=== PATIENT | female | born 1955 | race Caucasian/White ===

== ENCOUNTER 2016-04-28 11:54 | Day surgery (SDC) | payer OTHER ==
[2016-04-19 12:08] VITALS: BMI 28.0
--- NOTE | 2016-04-19 12:34 | PAT Medication Instructions ---
Service Date Apr 19, 2016. Current Home Medication List Albuterol Inhaler (Ventolin Inhaler), 2 PUFFS INH QID PRN for Wheezing Spfofil-Auedbvkmqdgzl-Eemxrfpn (Excedrin Migraine), 2 TAB PO TID PRN for Migraine Cyclobenzaprine Hcl (Flexeril), 5 MG PO BID PRN for Migraine Diazepam (Valium), 2 MG PO BID PRN Fexofenadine/Pseudoephedrine (Zenaida-D 12HR 60/120MG), 1 TAB PO QAM Fluoxetine (Prozac), 40 MG PO QAM Latanoprost 0.005% Oph (Xalatan 0.005% Oph), 1 DROP OPB HS Levothyroxine Sodium (Levoxyl), 1 TAB PO QAM Lorazepam (Ativan *), 1 MG PO HS PRN for Anxiety Magnesium Oxide (Mag-Ox), 400 MG PO HS Meloxicam (Mobic), 15 MG PO QAM Misoprostol (Cytotec), 100 MCG PO TID PRN for STOMACH ULCER Multiple Vitamin (Multi Vitamin Daily), 1 TAB PO QAM Pantoprazole (Protonix), 40 MG PO QAM Pseudoephedrine (Sudafed), 30 MG PO QAM Triamcinolone Acetonide (Nasal (Nasacort Aq Nasal Inh), 2 SPRAYS ZURDO BID PRN for ALLERGIES Valacyclovir Hcl (Valtrex), 500 MG PO BID PRN for cold sores Medication Instructions For Your Scheduled Surgery - Per pt, stopped 04/18/16: Meloxicam (Mobic), 15 MG PO QAM Iygstcn-Tmxcmjdmzlnrh-Rjhjlmol (Excedrin Migraine), 2 TAB PO TID PRN for Migraine Multiple Vitamin (Multi Vitamin Daily), 1 TAB PO QAM - Hold the following medications the morning of surgery: Cyclobenzaprine Hcl (Flexeril), 5 MG PO BID PRN for Migraine Misoprostol (Cytotec), 100 MCG PO TID PRN for STOMACH ULCER Fexofenadine/Pseudoephedrine (Zenaida-D 12HR 60/120MG), 1 TAB PO QAM Pseudoephedrine (Sudafed), 30 MG PO QAM - Take the following medications the morning of surgery with a sip of water OTHERWISE NOTHING TO EAT OR DRINK AFTER MIDNIGHT: Albuterol Inhaler (Ventolin Inhaler), 2 PUFFS INH QID PRN for Wheezing (use if needed; BRING TO HOSPITAL) Diazepam (Valium), 2 MG PO BID PRN Fluoxetine (Prozac), 40 MG PO QAM Levothyroxine Sodium (Levoxyl), 1 TAB PO QAM Pantoprazole (Protonix), 40 MG PO QAM Valacyclovir Hcl (Valtrex), 500 MG PO BID PRN for cold sores Triamcinolone Acetonide (Nasal (Nasacort Aq Nasal Inh), 2 SPRAYS ZURDO BID PRN for ALLERGIES - Take the following medications as scheduled the night before surgery: Albuterol Inhaler (Ventolin Inhaler), 2 PUFFS INH QID PRN for Wheezing Cyclobenzaprine Hcl (Flexeril), 5 MG PO BID PRN for Migraine Diazepam (Valium), 2 MG PO BID PRN Lorazepam (Ativan *), 1 MG PO HS PRN for Anxiety Magnesium Oxide (Mag-Ox), 400 MG PO HS Latanoprost 0.005% Oph (Xalatan 0.005% Oph), 1 DROP OPB HS Misoprostol (Cytotec), 100 MCG PO TID PRN for STOMACH ULCER Valacyclovir Hcl (Valtrex), 500 MG PO BID PRN for cold sores Triamcinolone Acetonide (Nasal (Nasacort Aq Nasal Inh), 2 SPRAYS ZURDO BID PRN for ALLERGIES If you have any questions please call us at [phone] or [phone] or [phone]
[2016-04-19 13:01] LABS: BASO % 0.5 %; BASO ABS # 0.03 K/uL (0-0.2); COMPLETE YES; EOS % 5.3 %; HEMATOCRIT 40.1 % (37-47); IG% 0.2 %; LYMPH % 18.9 %; LYMPH ABS # 1.25 K/uL (1.2-3.4); MEAN CELL VOLUME 88.9 fL (80-100); MEAN CORPUSCULAR HEMOGLOBIN 29.9 pg (25-34); MEAN CORPUSCULAR HGB CONC 33.7 g/dl (32-36); MEAN PLATELET VOLUME 9.6 fL (7.4-10.4); MONO % 7.9 %; NEUT % 67.2 %; PLATELET COUNT 292 K/uL (130-400); RED BLOOD COUNT 4.51 M/uL (4.2-5.4)
[2016-04-19 13:01] LABS: URINE APPEARANCE CLEAR (CLEAR); URINE BILIRUBIN NEG (NEG); URINE COLOR DK YELLOW; URINE NITRITE NEG (NEG); URINE PH 5.5 (4.5-7.5); UROBILINOGEN NEG (NEG)
[2016-04-19 13:03] LABS: MANUAL MICROSCOPIC REQUIRED? NO; REVIEW REQ? NO
--- NOTE | 2016-04-19 13:11 | DIAGNOSTIC IMAGING REPORT ---
CHEST PREADMISSION(PA/LAT) CLINICAL HISTORY: Preoperative evaluation. COMPARISON STUDY: Chest radiograph and chest CT December 13, 2014. FINDINGS: Lung volumes are normal. Lungs are clear. There is no pneumothorax or pleural effusion. Cardiac size is normal. Mediastinal contours are normal. There is no evidence of pulmonary edema. IMPRESSION: No acute cardiopulmonary findings. Electronically signed by: Adriano Silva M.D. 04/19/2016 1:09 PM Dictated Date/Time: 04/19/2016 1:09 PM
[2016-04-19 13:29] LABS: BUN/CREATININE RATIO 27.7 (10-20); CALCIUM 9.2 mg/dl (8.5-10.1); CREATININE 0.97 mg/dl (0.60-1.20); POTASSIUM 4.4 mmol/L (3.5-5.1)
--- NOTE | 2016-04-27 08:49 | HISTORY & PHYSICAL EXAMINATION ---
DATE OF ADMISSION: 04/28/2016 HISTORY OF PRESENT ILLNESS: The patient is well known to our practice. She is status post L3 through S1 lumbar decompression and fusion. She continues to struggle with chronic low back pain. She reports it radiates to the lower extremities. She underwent successful dorsal column stimulator by Dr. Romero and presents to our office to schedule stim implantation. Rates her pain to be a 4/10 with the trial. Denies bowel or bladder dysfunction. PAST MEDICAL HISTORY: The patient's medical history is significant for chronic back pain, migraines, anxiety, and GERD. PAST SURGICAL HISTORY: Significant for prior lumbar fusion. Significant for colectomy, tubal ligation as well as hysterectomy. ALLERGIES: INCLUDE SULFA. CURRENT MEDICATIONS: Include Protonix 40 mg a day, Mobic 15 mg a day, unknown med 75 mcg daily, valacyclovir 500 mg p.r.n., Ventolin inhaler as needed, multivitamin, Zenaida-D, Nasacort daily, Ativan 1 mg t.i.d. p.r.n., Xalatan 0.005% eyedrops 1 drop every evening, Cytotec 100 mcg 3 times a day, Oxycodone 5 mg q. 4 hours p.r.n., cyclobenzaprine 10 mg t.i.d., fluoxetine 40 mg daily, hydroxyzine HCL 25 mg q.i.d., diazepam 2 mg t.i.d., Zovirax 5% topical ointment as needed, Excedrin Migraine as needed, magnesium oxide 400 mg daily. SOCIAL HISTORY: She is retired. Denies alcohol. Denies tobacco. She is . FAMILY HISTORY: Noncontributory. REVIEW OF SYSTEMS: Significant for fatigue, malaise, back pain and leg pain, headache, nasal congestion, abdominal pain, depression. PHYSICAL EXAMINATION: VITAL SIGNS: She is 5' 5, 150 pounds. HEAD, EYES, EARS, NOSE, AND THROAT: Speech appropriate. CARDIOPULMONARY: No gross abnormalities. ABDOMEN: Soft, nondistended. GENITOURINARY: Deferred. NEUROLOGIC: Cranial nerves II-XII grossly intact. MUSCULOSKELETAL: She has a well-healed lumbar incision. Ambulates with an independent steady gait. Strength is intact to the bilateral lower extremities. Neurovascularly intact bilateral lower extremities. ASSESSMENT: Post laminectomy syndrome/chronic pain. PLAN: At this point in time, she had a successful dorsal column stimulator trial with Dr. Romero. She presents to our office for dorsal column stimulator implant to reduce her symptoms. Risks, benefits, pros, cons, and alternatives were outlined in detail. She would like to proceed with the above-mentioned surgical placement of stim which includes lumbar laminectomy and lead placement at the top of the end plate T8. JEFF
[~2016-04-28] VITALS: Ht 165.1 cm; Wt 77.7 kg
--- NOTE | 2016-04-28 07:27 | History & Physical Bridge Note ---
H&P Re-Evaluation Bridge Note: I have examined the patient, reviewed the History & Physical and in the interval since the performance of the History & Physical I have noted the following changes of clinical significance: No changes noted
[~2016-04-28 11:54] MED LIST: ALBUAER19 INH; ALLDSR60 PO; ASPI-390 PO; ATV1 PO; CEFAZOLIN 1000MG/55 ML D5W IV SCH; CYCL5TAB PO; DIAZ2TAB PO; FLUO40CA8 PO; LACTATED RINGER'S 1000ML 1,000 ML IV SCH; LATA0.009 OPB; LEVO75TA25 PO; MAGN400T6 PO; MELO15TA3 PO; MISO1TAB10 PO; MULT-884 PO; PANT1TAB48 PO; PSEU30TA20 PO; TRIA3AER NAE; VALA500T39 PO
[2016-04-28 12:43] VITALS: BP 141/92; PULSE 77; TEMP 36.6; O2SAT 98; Ht 165.1 cm; Wt 77.7 kg
[2016-04-28] MEDS ORDERED: PROMETHAZINE HCL INJ 6.25 MG in SODIUM CHLORIDE 0.9% 50ML 50 ML IV PRN (13:15)
[2016-04-28] MEDS ORDERED: ONDANSETRON INJ 2 MG/ML 2 ML VIAL IV PRN (13:15)
[2016-04-28] MEDS ORDERED: EpHEDrine SULFATE INJ 50 MG/ML AMP IV PRN (13:15)
[2016-04-28] MEDS ORDERED: ATROPINE SULFATE 0.1 MG/ML 5ML SYR IV PRN (13:15)
[2016-04-28] MEDS ORDERED: BUPIVACAINE/EPINEPHRINE 0.5% MPF 1:200,000 30 ML VIAL ONE (13:27)
[2016-04-28] MEDS ORDERED: BACITRACIN 50000 UNIT VIAL ONE (13:27)
[2016-04-28] MEDS ORDERED: FENTANYL CITRATE INJ 50 MCG/1 ML 2 ML VIAL ONE (13:30)
[2016-04-28] MEDS ORDERED: PROPOFOL IV EMULSION 10 MG/ML 20 ML VIAL IV ONE (13:30)
[2016-04-28] MEDS ORDERED: ROCURONIUM BROMIDE 10 MG/ML 5 ML VIAL ONE (13:30)
[2016-04-28] MEDS ORDERED: MIDAZOLAM HCL 1 MG/ML 2ML VIAL ONE (13:30)
[2016-04-28] MEDS ORDERED: LIDOCAINE HCL 2% 2 ML VIAL (20MG/ML) ONE (13:30)
[2016-04-28] MEDS ORDERED: HYDR-5688 PO (14:36)
--- NOTE | 2016-04-28 14:37 | Discharge Instructions ---
Discharge Instructions Admission Reason for Admission: SI Joint Dysfunction Discharge Discharge Diagnosis / Problem: chronic back pain Discharge Goals Goal(s): Improve function Activity Recommendations Activity Limitations: per Instructions/Follow-up section . Instructions / Follow-Up Instructions / Follow-Up ACTIVITY RECOMMENDATIONS: SELF CARE INSTRUCTIONS AFTER A LAMINECTOMY 1. No prolonged sitting (less than 30 minutes for the first 3 weeks after surgery). 2. No bending, lifting more than 5 pounds, or twisting (roll like a log when turning in bed). 3. You may shower 3 days after surgery if no drainage from wound. Thoroughly dry wound. Do not soak in the tub. 4. Please walk as much as you can for exercise. Gradually increase the distance that you walk as your endurance increases. 5. You may drive in 7-10 days if you are comfortable and no longer requiring pain medications. SPECIAL CARE INSTRUCTIONS: VERY IMPORTANT TO READ AND REVIEW A. Your surgical incision has been closed with a cosmetic suture under the skin that will dissolve in about 6 weeks. In 14 days, you can use a pair of clean scissors and cut the suture that is left outside of the skin at the ends of your incision. B. Complications are uncommon, but please contact us if you have any signs or symptoms of: 1. wound infection (fever higher than 102.5 degrees F, redness, separation of wound, drainage, or increasing pain from the incision) 2. blood clots in legs (pain, swelling, redness and warmth in legs) 3. urinary tract infection (fever higher than 102.5 degrees, burning upon urination or increased frequency of urination) 4. nerve problems (inability to walk on your toes or heels, numbness, loss of bowel or bladder control) 5. any other symptoms that concern you. C. Please call the office at if you have any concerns or questions about your operation or recovery. MANAGING PAIN AFTER SPINAL SURGERY 1. Narcotic medication is intended for short-term use and will be provided for surgical pain. Surgical pain usually lasts for a period of 4-6 weeks. Narcotic medication includes Percocet, Vicodin, Darvocet, Tylenol #3 or Lortab. 2. Longer-term pain is more appropriately treated with non-narcotic medication such as Tylenol ES. 3. Muscle spasm is not appropriately treated with narcotics. Muscle relaxers such as Soma, Flexeril or Skelaxin can be used along with Tylenol ES. 4. Remember that we all live with some "aches and pains". This is not unusual or uncommon after an injury or as we get older. 5. We will provide appropriate medication within the normal guidelines of their prescribed use. We will also be very cautious and aware of potential abuse and extended duration of patients' medication needs. 6. Please allow 2-3 days to process refills. Prescriptions will not be mailed but must be picked up at the office. FOLLOW UP VISIT: Keep your scheduled follow-up appointment. Any questions, please call the office at . Current Hospital Diet Patient's current hospital diet: Discharge Diet Recommended Diet: Regular Diet Procedures Procedures Performed: Spinal Cord Stimulator Implant Pending Studies Studies pending at discharge: no Medical Emergencies . Who to Call and When: Medical Emergencies: If at any time you feel your situation is an emergency, please call 911 immediately. . Non-Emergent Contact Non-Emergency issues call your: Primary Care Provider . "Provider Documentation" section prepared by Finesse Connors. VTE Core Measure Inpt VTE Proph given/why not?: Adalid Jameson, SCD's
[2016-04-28] MEDS ORDERED: ACETAMINOPHEN 650 MG SUPP PR PRN (14:45)
[2016-04-28] MEDS ORDERED: HYDROCODONE/ACETAMOPHEN 5/325MG TAB PO PRN (14:45)
[2016-04-28] MEDS ORDERED: HYDROmorphone INJ 1 MG/ML SYR IV PRN (14:45)
[2016-04-28] MEDS ORDERED: ACETAMINOPHEN 325 MG TAB PO PRN (14:45)
--- NOTE | 2016-04-28 14:47 | DIAGNOSTIC IMAGING REPORT ---
LUMBAR SPINE, INTRAOPERATIVE FLUOROSCOPY HISTORY: Bilateral stimulator lead placement. FLUOROSCOPY TIME: 7 seconds. FINDINGS: Intraoperative fluoroscopy was provided for the lumbar spine. 2 fluoroscopic spot images were obtained. Bio stimulator leads placed at the T9/T10 level of the thoracic spine. IMPRESSION: Fluoroscopy provided for a bio stimulator lead placement procedure. Electronically signed by: Billy Keys M.D. 04/28/2016 2:46 PM Dictated Date/Time: 04/28/2016 2:44 PM
--- NOTE | 2016-04-28 14:58 | OPERATIVE REPORT ---
DATE OF OPERATION: 04/28/2016 PREOPERATIVE DIAGNOSIS: Chronic back pain. POSTOPERATIVE DIAGNOSIS: Same. PROCEDURE PERFORMED: 1. T11 laminotomy. 2. Placement of 16 lead dorsal column stimulator paddle. 3. Placement of rechargeable battery in the right flank. SURGEON: Dr. Finesse Connors. CONTOUR GRINDER: Lizbet Kennedy PA-C. Due to the complex nature of the procedure, the entire surgery was performed with the web assistant of GORDON Hernandez. The events administrative assistant, under direct supervision, was involved in the actual performance of all aspects of the surgical procedure including hemostasis, tissue retraction and incision, instrument management, patient positioning, and wound closure. ANESTHESIA: General. DISPOSITION: The patient awakened and taken to PACU in stable condition. HISTORY OF PATIENT'S PROBLEMS: This is a 60-year-old female well known to me that presents with above-mentioned diagnosis. After failing an extensive course of nonoperative care and having excellent results with a dorsal column stimulator trial, we elected to undergo permanent implantation. Risks, benefits, pros, cons, and alternatives were outlined in detail preoperatively. PROCEDURE: The patient was met with preoperatively, case discussed and all questions were addressed. At that point the patient was taken back to operative suite and after undergoing successful general intubation by the department of anesthesia was placed in prone position on Mauro table with a chest pad and hip bolsters. All bony prominences were well padded and the eyes were inspected to ensure there was no external pressure placed upon them. At this point the thoracic spine was prepped and draped in normal sterile fashion. With the assistance of fluoroscopy, we identified the T10-11 disc space. Midline incision was created overlying this region. Sharp dissection with the assistance of Bovie cautery was performed down to and exposing the lamina and interlaminar space at T11-T12 region. I then created a central laminotomy at T11 and was able to pass a 16 lead dorsal column stimulator paddle proximally to reside between the pedicles of T8 and T10. We verified our position with fluoroscopy. After this was complete, we created a pocket over the right flank sharply dissecting through the skin into the subcutaneous fat directly above the lumbar fascia. Please note, prior to attachment of the leads to the battery we did tunnel the leads to the battery pocket site then attached to the battery, tested it to ensure that it was working appropriately. The battery was then placed and the midline laminotomy site irrigated and both incisions closed with subcutaneous Vicryl and 4-0 Monocryl for final skin closure. Steri-Strips and sterile dressing placed. The patient was awakened and taken to PACU in stable condition. I attest to the content of the Intraoperative Record and any orders documented therein. Any exceptio ns are noted below.
[2016-04-28] MEDS ORDERED: HYDROmorphone INJ 2 MG/ML SYR/VIAL IV PRN (15:00)
[2016-04-28] MEDS ORDERED: NEOSTIGMINE METHYLSULFATE 1 MG/ML 10ML VIAL ONE (15:07)
[2016-04-28] MEDS ORDERED: ONDANSETRON INJ 2 MG/ML 2 ML VIAL ONE (15:07)
[2016-04-28] MEDS ORDERED: GLYCOPYRROLATE INJ 0.2 MG/ML VIAL ONE (15:07)
[2016-04-28] MEDS ORDERED: DEXAMETHASONE SOD INJ 4 MG/ML VIAL ONE (15:07)
[2016-04-28] MEDS: FENTANYL CITRATE INJ 50 MCG/1 ML 2 ML VIAL IV PRN ×2 (15:24→15:31)
--- NOTE | 2016-04-28 15:49 | Anesthesiology Progress Note ---
Anesthesia Post Op Note Date & Time Apr 28, 2016 at 15:46 Vital Signs Pain Intensity: 4 Vital Signs Past 12 Hours Date Time Temp Pulse Resp B/P Pulse Ox O2 Delivery O2 Flow Rate FiO2 04/28/16 15:25 72 12 148/86 100 Mask 10 04/28/16 15:15 87 19 164/91 100 Mask 10 04/28/16 15:06 36.6 93 16 167/94 100 Mask 10 04/28/16 12:43 36.6 77 18 141/92 98 Room Air Notes Mental Status: alert / awake / arousable, participated in evaluation Pt Amnestic to Procedure: Yes Nausea / Vomiting: adequately controlled Pain: adequately controlled Airway Patency, RR, SpO2: stable & adequate BP & HR: stable & adequate Hydration State: stable & adequate In PACU, patient complaining of a dry, scratchy left eye. Eyedrops with saline tried but still feeling scratchy. Appears less red after drops. Will have her use gentamicin ointment for a couple days and if still bothering her she will call Dr Connors and let him know. Patient is good with this.
[2016-04-28 16:00] VITALS: TEMP 36.7
[2016-04-28 17:00] VITALS: BP 153/88; PULSE 70; O2SAT 99
[2016-04-28] MEDS ORDERED: GENTAMICIN SULFATE 0.3% OP OINT 3.5 GM TUBE OP ONE (21:00)
== END 2016-04-28 17:10 | disposition home or self-care (01) ==
LOC: C.ACU 11:54
PROVIDERS: ATTEND Orthopaedic Surgery Orthopaedic Surgery of the Spine
DX: M96.1 Postlaminectomy syndrome, not elsewhere classified (principal); G89.28 Other chronic postprocedural pain; F41.9 Anxiety disorder, unspecified

== ENCOUNTER → 2017-03-25 | Outpatient (CLI) | payer OTHER | END | disposition home or self-care (01) | LOC: C.MAMM 10:12 | DX: Z12.31 Encounter for screening mammogram for malignant neoplasm of breast (principal) ==

== ENCOUNTER → 2017-07-13 | Outpatient (CLI) | payer OTHER ==
[~2017-07-13] MED LIST changes: -CEFAZOLIN 1000MG/55 ML D5W IV SCH; -LACTATED RINGER'S 1000ML 1,000 ML IV SCH; +PANT1TAB3 PO; -PANT1TAB48 PO
== END | disposition home or self-care (01) ==
LOC: C.CPL 12:09
DX: M25.511 Pain in right shoulder (principal)